=== PATIENT | female | born 1960 | race Caucasian/White ===

== ENCOUNTER 2022-07-21 07:27 | Emergency (ER) | payer BC, OTHER ==
[~2022-07-21] VITALS: Ht 165.1 cm; Wt 70.0 kg
[2022-07-21 09:10] VITALS: BP 158/86
[2022-07-21] MEDS ORDERED: KETOROLAC TROMETH 60MG/2ML VIAL IM ONE (09:15)
[2022-07-21] MEDS ORDERED: IBUP800T27 PO (10:11)
== END 2022-07-21 10:32 | disposition home or self-care (01) ==
LOC: ER 07:27
DX: S52.122A Displaced fracture of head of left radius, initial encounter for closed fracture (principal); S46.912A Strain of unspecified muscle, fascia and tendon at shoulder and upper arm level, left arm, initial encounter; I10 Essential (primary) hypertension; F17.210 Nicotine dependence, cigarettes, uncomplicated; Z79.1 Long term (current) use of non-steroidal anti-inflammatories (NSAID); W01.0XXA Fall on same level from slipping, tripping and stumbling without subsequent striking against object, initial encounter; Y93.89 Activity, other specified; Y92.89 Other specified places as the place of occurrence of the external cause; Y99.8 Other external cause status
CPT/HCPCS: 29105; 73030; 73080; 96372; 99284; J1885